=== PATIENT | male | born 1965 | race Asian ===

== ENCOUNTER 2021-06-07 17:30 | Outpatient (CLI) | payer BC | END 2021-06-07 17:31 | disposition home or self-care (01) | LOC: SLEEPLAB 17:30 | PROVIDERS: ATTEND Otolaryngology Plastic Surgery within the Head & Neck | DX: G47.33 Obstructive sleep apnea (adult) (pediatric) (principal); R53.83 Other fatigue; R06.83 Snoring; J34.2 Deviated nasal septum | CPT/HCPCS: 95806 ==

== ENCOUNTER 2024-01-22 13:51 | Outpatient (CLI) | payer BC | END 2024-01-22 13:52 | disposition home or self-care (01) | LOC: RAD 13:51 | PROVIDERS: ATTEND Internal Medicine | DX: R06.00 Dyspnea, unspecified (principal) | CPT/HCPCS: 71046 ==